=== PATIENT | female | born 1955 | race Caucasian/White ===

== ENCOUNTER → 2023-12-24 13:42 | Outpatient (REF) | payer MEDICARE, BC, SELFPAY | LOC: HWRAD 13:42 | PROVIDERS: ATTENDING PHYSICIAN Physician Assistant Medical | DX: M85.80 Other specified disorders of bone density and structure, unspecified site (principal); M85.89 Other specified disorders of bone density and structure, multiple sites | CPT/HCPCS: 77080 ==

== ENCOUNTER 2024-01-25 17:56 | Emergency (ER) | payer MEDICARE, BC, SELFPAY ==
[2024-01-25 18:09] VITALS: BP 187/114
--- NOTE | 2024-01-25 19:23 | ED.GENMED ---
History of Present Illness
General
Chief Complaint: Musculo-Skeletal Complaint
Time Seen by Provider: 01/25/24 19:23
Travel History
Have you had any contact with someone who has COVID-19?: No
Do you have any symptoms of coronavirus? Fever > 100 degrees, chills, cough, shortness of breath, sore throat, loss of taste or smell, muscle aches, or headache?: No
History of Present Illness
History of Present Illness:
HPI: Patient presents with left Achilles pain. This been ongoing for the past month. She went to [facility] for evaluation. She was recommended to have physical therapy. Today, she noted redness and warmth to the left Achilles but no significantly
increased pain. She called her doctor at [facility] and they recommended her come to the emergency department for evaluation.
EXAM:
GENERAL: Well appearing in no distress
HEENT: Moist oral mucosa
NEUROLOGIC: Excellent strength all extremities, no coordination deficits
PSYCHIATRIC: Appropriate mental status, normal insight and judgement
EXTREMITIES: There is some mild warmth and erythema to the insertion point at the left Achilles with no decrease in active range of motion at the left ankle, the Achilles is intact
SKIN: As above
TIME OF INITIAL ENCOUNTER: 7:30 PM
NUMBER AND COMPLEXITY OF PROBLEMS ADDRESSED AT THE ENCOUNTER
� Chronic conditions affecting care: Hypothyroidism, hyperlipidemia, has had orthopedic knee surgery
� Acute Exacerbation and/or Progression of Chronic Illness: This is an acute problem
� Differential Diagnosis includes: Local inflammation over the Achilles, cellulitis
AMOUNT AND/OR COMPLEXITY OF DATA TO BE REVIEWED AND ANALYZED
� I performed an independent evaluation of and my interpretation is:
EKG:
CT:
X-rays:
Laboratory Studies:
Other:
� Review of other/old records: I reviewed the intensity testing from last month that showed osteopenia
� Clinical information was obtained by an independent historian: None needed
� Prescriptions/Medications Considered but not given:
� Further testing considered but not performed:
RISK OF COMPLICATIONS AND/OR MORBIDITY OR MORTALITY OF PATIENT MANAGEMENT
� Social determinants of health affecting care: Lives at home
� Discussion with other providers:
� Escalation of care including admission/observation vs risk of discharge considered: Given the focal area of warmth and erythema, will start antibiotics. The patient is hypertensive but afebrile and not tachycardic. She is
well-appearing.
Past History
Past History
ED Past Medical History: Hypothyroidism, Other (diverticulitis, vertigo) and Other (M�ni�re's disease)
ED Past Surgical History: Orthopedic
Social History
Tobacco: Non-smoker
Alcohol: None
Living: with family
Employment: Employed
Family History
Family History: CAD and Other (father with a valve replacement, mother with vertigo)
Phy Exam
Physical Exam
Physical Exam:
See HPI
Course
Orders/Labs/Results
Orders:
Orders
01/25/24 19:35
Cephalexin Monohydrate [Keflex] 500 mg PO NOW STA
Vital Signs
Initial and Last Documented VS:
Initial Vital Signs
Temp Pulse Resp BP Pulse Ox
98.3 F 67 18 187/114 99
01/25/24 18:09 01/25/24 18:09 01/25/24 18:09 01/25/24 18:09 01/25/24 18:09
Last Documented Vital Signs
Temp Pulse Resp BP Pulse Ox
98.3 F 58 18 158/81 99
01/25/24 18:09 01/25/24 19:48 01/25/24 18:09 01/25/24 19:48 01/25/24 19:48
*Critical Care Note
Total Time (30-74mins, 75-104mins- exclusive of procedures): Not Applicable
ED Attending Note
-
Portions of this chart may have been created with voice recognition software.� Occasional wrong word or��sound alike� substitutions may have occurred due to the inherent limitations of voice recognition software.
Discharge Plan
Departure
Patient Disposition: Home (Routine Discharge)
Date of Disposition: 01/25/24
Time of Disposition: 19:36
Patient with high blood pressure during this ER visit?: Yes
Discharge Problem:
Cellulitis
Instructions: Cellulitis (Skin Infection), Adult (DC), BLOOD PRESSURE
Prescriptions:
New
cephalexin 500 mg capsule
500 mg PO TID Qty: 21 0RF
No Action
multivitamin [One Daily Multivitamin] 1 EACH tablet
1 tab PO DAILY
cetirizine 10 MG tablet
10 mg PO DAILY
levothyroxine 100 MCG tablet
100 mcg PO DAILY
Lactobacillus acidophilus [Probiotic] 1 EACH capsule
1 cap PO DAILY
Calcium
1 tab PO DAILY
Cranberry
1 tab PO DAILY
meclizine 25 MG tablet
25 mg PO Q8HPRN PRN (Reason: vertigo)
prochlorperazine maleate 10 MG tablet
10 mg PO Q8HPRN PRN (Reason: dizziness, headache, nausea) Qty: 15 0RF
meclizine 25 MG tablet
25 mg PO Q8HPRN PRN (Reason: vertigo) Qty: 20 0RF
meclizine 25 MG tablet
25 mg PO Q8HPRN PRN (Reason: nausea or vertigo) Qty: 30 0RF
diazepam 5 MG tablet
5 mg PO TIDPRN PRN (Reason: vertigo) Qty: 15 0RF
codeine-guaifenesin 7.5-225 mg/5 mL liquid
5 ml PO ONCE PRN (Reason: Cough) Qty: 120 0RF
Referrals:
Nj Noyola MD [Active] - Follow up in 2-3 days
Activity Restrictions/Additional Instructions:
We gave a dose of Keflex here and I sent a prescription for Keflex to your pharmacy. Next dose tomorrow. Follow-up with [facility]. Return here if worse. Try to keep the leg elevated and continue to use ice and NSAIDs.
Interventions
Interventions:
*Risk Screen - Suicide Last Done: 01/25/24 20:13
*General Assessment Last Done: 01/25/24 20:13
*Neglect/Abuse Screening Last Done: 01/25/24 20:13
ED- Fall Risk Assessment Last Done: 01/25/24 20:13
*ED COVID-19 Vaccine History Last Done: 01/25/24 20:13
*Nursing Disposition Last Done: 01/25/24 20:13
ED-Musculoskeletal Assessment Last Done: 01/25/24 20:13
Discharge Date and Time
Discharge Date/Time: 01/25/24 20:00
[2024-01-25 19:48] VITALS: BP 158/81
[2024-01-25] MEDS: KEFLEX 500 MG PO (19:49)
== END 2024-01-25 20:00 | disposition home or self-care (01) ==
LOC: EMR 17:56
PROVIDERS: EMERGENCY PHYSICIAN Emergency Medicine; FAMILY PHYSICIAN Physician Assistant Medical
DX: L03.116 Cellulitis of left lower limb (principal); I10 Essential (primary) hypertension
CPT/HCPCS: 99283

== ENCOUNTER → 2024-03-28 14:12 | Outpatient (REF) | payer MEDICARE, BC, SELFPAY | LOC: HWWDC 14:12 | PROVIDERS: ATTENDING PHYSICIAN Obstetrics & Gynecology; FAMILY PHYSICIAN Physician Assistant Medical | DX: Z12.31 Encounter for screening mammogram for malignant neoplasm of breast (principal) | CPT/HCPCS: 77063; 77067 ==

== ENCOUNTER 2024-04-27 10:27 | Emergency (ER) | payer MEDICARE, BC, SELFPAY ==
[2024-04-27 10:43] VITALS: BP 115/76
--- NOTE | 2024-04-27 12:21 | ED.GENMED ---
History of Present Illness
General
Chief Complaint: DVT/Possible Blood Clot
Source: patient
Exam Limitations: none
Time Seen by Provider: 04/27/24 11:06
Nursing documentation reviewed up to this point in time: agreed with
History of Present Illness
History of Present Illness:
68-year-old female with history as documented presents for evaluation of left leg pain. Patient reports that she took a trip to [place] to visit friends and when she was at dinner she stood up from the table and felt pain in the back of her thigh
and knee. She says that she was worried it could be a blood clot and came to the emergency room. She denies any falls or trauma. Denies any twisting or other injury. She says she thinks it could be slightly swollen but no redness. No fevers or
chills. No chest pain or shortness of breath. No history of clots.
Past History
Past History
ED Past Medical History: Hypothyroidism, Other (diverticulitis, vertigo) and Other (M�ni�re's disease)
ED Past Surgical History: Orthopedic
Social History
Tobacco: Non-smoker
Alcohol: None
Living: with family
Employment: Employed
Family History
Family History: CAD and Other (father with a valve replacement, mother with vertigo)
Review of Systems
Review of Systems
All Other Systems: ROS reviewed and negative except as documented in HPI and ROS
Respiratory: Denies trouble breathing
Cardiac: Denies chest pain
Musculoskeletal: Reports other (Left leg pain and swelling)
Phy Exam
Physical Exam
Physical Exam:
General: Awake, alert, oriented x3; no acute distress
Head: Normocephalic, atraumatic
Eyes: Conjunctiva normal
Throat: Airway intact, handling secretions
Neck: Trachea midline
Lungs: Breathing comfortably not in distress
Heart: Regular rate
Neuro: No gross deficits
Skin: no rash
Extremities: No edema in extremities, equal pulses in all extremities specifically strong left popliteal and DP pulse; she has some mild tenderness in the posterior distal thigh on the left as well as in the popliteal region but no masses, no
ecchymosis or erythema; she has a very small left joint effusion on the left knee but no erythema, no warmth, full range of motion of the knee without apparent pain
Scores
Heart Failure Risk
Heart Failure Risk Score: Not Applicable
Heart Score for Chest Pain Patients
STEMI patient?: Not applicable
Withdrawal Assessment of Alcohol
Withdrawal Assessment Completed?: Not applicable
Course
Orders/Labs/Results
Orders:
Orders
04/27/24 12:21
US Periph Venous LOWER Ext LT Urgent
Comment:
Reason For Exam: left posterior knee pain
Vital Signs
Initial and Last Documented VS:
Initial Vital Signs
Temp Pulse Resp BP Pulse Ox
36.7 C 64 18 115/76 98
04/27/24 10:43 04/27/24 10:43 04/27/24 10:43 04/27/24 10:43 04/27/24 10:43
Last Documented Vital Signs
Temp Pulse Resp BP Pulse Ox
36.7 C 64 18 115/76 98
04/27/24 10:43 04/27/24 10:43 04/27/24 10:43 04/27/24 10:43 04/27/24 10:43
MDM/Problems Addressed
Differential Diagnosis Includes:
DVT, Bowens's cyst, muscle strain, osteoarthritis
MDM/Problems Addressed:
68-year-old female presents for evaluation of left leg pain mostly behind the knee and in the thigh. Vital signs normal. Exam as above. Sent for a DVT study which was negative. Suspect likely muscular strain versus osteoarthritis that she did
have a very tiny left joint effusion. I think she is stable for discharge advised rest, Tylenol/Motrin as needed. Patient happy with this plan. All questions answered.
*Radiology
Radiology exam reviewed: radiology read reviewed
*Pulse Oximetry
Patient hypoxic: no
*Critical Care Note
Total Time (30-74mins, 75-104mins- exclusive of procedures): Not Applicable
Data Reviewed
Source: patient
ED Attending Note
-
Portions of this chart may have been created with voice recognition software.� Occasional wrong word or��sound alike� substitutions may have occurred due to the inherent limitations of voice recognition software.
Discharge Plan
Departure
Patient Disposition: Home (Routine Discharge)
Date of Disposition: 04/27/24
Time of Disposition: 14:16
Patient with high blood pressure during this ER visit?: No
Discharge Problem:
Left leg pain
Instructions: Osteoarthritis
Prescriptions:
No Action
multivitamin [One Daily Multivitamin] 1 EACH tablet
1 tab PO DAILY
cetirizine 10 MG tablet
10 mg PO DAILY
levothyroxine 100 MCG tablet
100 mcg PO DAILY
Lactobacillus acidophilus [Probiotic] 1 EACH capsule
1 cap PO DAILY
Calcium
1 tab PO DAILY
Cranberry
1 tab PO DAILY
meclizine 25 MG tablet
25 mg PO Q8HPRN PRN (Reason: vertigo)
prochlorperazine maleate 10 MG tablet
10 mg PO Q8HPRN PRN (Reason: dizziness, headache, nausea) Qty: 15 0RF
meclizine 25 MG tablet
25 mg PO Q8HPRN PRN (Reason: vertigo) Qty: 20 0RF
meclizine 25 MG tablet
25 mg PO Q8HPRN PRN (Reason: nausea or vertigo) Qty: 30 0RF
diazepam 5 MG tablet
5 mg PO TIDPRN PRN (Reason: vertigo) Qty: 15 0RF
codeine-guaifenesin 7.5-225 mg/5 mL liquid
5 ml PO ONCE PRN (Reason: Cough) Qty: 120 0RF
cephalexin 500 mg capsule
500 mg PO TID Qty: 21 0RF
Referrals:
Mert Ronquillo PA-C [Family Provider] - Call in 1-3 days for appt
Activity Restrictions/Additional Instructions:
Thank you for visiting the Emergency Department at [facility].
1. Please schedule a follow up appointment as directed. Call first thing tomorrow morning to make an appointment.
2. If indicated, please take your medications as instructed and indicated on discharge paperwork.
3. If any of your symptoms do not improve, or persist, or become more severe within 6-12 hours, please return to the emergency department for further care.
4. Please return to the emergency department if you develop a headache, neck pain/stiffness, fever greater than 100.4F, chest pain, shortness of breath, persistent nausea, vomiting, slurred speech, difficulty walking, numbness/tingling, weakness,
signs of infection or any other symptoms that are worrisome to you.
Please call [phone] if you have any questions.
Interventions
Interventions:
*Risk Screen - Suicide Last Done: 04/27/24 12:37
*General Assessment Last Done: 04/27/24 12:37
*Neglect/Abuse Screening Last Done: 04/27/24 12:37
ED- Fall Risk Assessment Last Done: 04/27/24 14:23
*ED COVID-19 Vaccine History Last Done: 04/27/24 12:37
*Nursing Disposition Last Done: 04/27/24 14:23
ED- Cardiac Assessment Last Done: 04/27/24 12:25
ED-Musculoskeletal Assessment Last Done: 04/27/24 12:25
ED- Pulmonary Assessment Last Done: 04/27/24 12:25
ED-Peripheral Vascular Assessment Last Done: 04/27/24 12:37
ED-Skin Assessment Last Done: 04/27/24 12:37
Discharge Date and Time
Discharge Date/Time: 04/27/24 14:24
Print Language: ECUADORE[place]
== END 2024-04-27 14:24 | disposition home or self-care (01) ==
LOC: EMR 10:27
PROVIDERS: EMERGENCY PHYSICIAN Emergency Medicine; FAMILY PHYSICIAN Physician Assistant Medical
DX: M79.605 Pain in left leg (principal); M25.462 Effusion, left knee; E03.9 Hypothyroidism, unspecified; K57.92 Diverticulitis of intestine, part unspecified, without perforation or abscess without bleeding; E78.5 Hyperlipidemia, unspecified
CPT/HCPCS: 99284; 93971

== ENCOUNTER → 2025-04-16 14:23 | Outpatient (REF) | payer OTHER, SELFPAY | LOC: HWWDC 14:23 | PROVIDERS: ATTENDING PHYSICIAN Obstetrics & Gynecology; FAMILY PHYSICIAN Physician Assistant Medical | DX: Z12.31 Encounter for screening mammogram for malignant neoplasm of breast (principal) | CPT/HCPCS: 77063; 77067 ==

== ENCOUNTER → 2025-06-15 12:43 | Outpatient (REF) | payer OTHER, SELFPAY | LOC: WDC 12:43 | PROVIDERS: ATTENDING PHYSICIAN Obstetrics & Gynecology; FAMILY PHYSICIAN Physician Assistant Medical | DX: Z12.31 Encounter for screening mammogram for malignant neoplasm of breast (principal); Z80.3 Family history of malignant neoplasm of breast | CPT/HCPCS: 76641 ==